=== PATIENT | female | born 1975 | race Caucasian/White ===

== ENCOUNTER 2023-03-04 08:34 | Outpatient (CLI) | payer BC, SELFPAY | END 2023-03-04 08:35 | disposition home or self-care (01) | PROVIDERS: PCP Nurse Practitioner Family; Visit Provider Nurse Practitioner Family | DX: Z00.00 Encounter for general adult medical examination without abnormal findings (principal); Z13.6 Encounter for screening for cardiovascular disorders; Z13.1 Encounter for screening for diabetes mellitus | CPT/HCPCS: 80061; 82947 ==

== ENCOUNTER 2023-06-03 14:15 | Outpatient (CLI) | payer BC, SELFPAY ==
--- NOTE | 2023-06-03 14:40 | CRLHL7_ITS ---
For Patients: As a result of the Cures Act, medical imaging exams and procedure reports are released immediately into your electronic medical record. You may view this report before your referring provider. If you have questions, please contact your health care provider. BILATERAL SCREENING MAMMOGRAM WITH COMPUTER-AIDED DETECTION AND TOMOSYNTHESIS TECHNIQUE: CC and MLO views were obtained. These mammographic images have been obtained using full-field digital technique. These mammographic images were interpreted with the benefit of computer-aided detection. Breast Tomosynthesis was used in this interpretation. COMPARISON FILM: 02/26/22, 10/31/20, 08/24/19. FINDINGS: The breasts are almost entirely fatty IMPRESSION: There is no radiographic evidence for malignancy. ASSESSMENT: BI-RADS Category 1: Negative RECOMMENDATION: Routine screening mammogram in 1 year. A lay language report of this examination will be provided to the patient. Luis Felipe Fonseca M.D. Diagnostic Radiologist [email or web address] JONAH/hector Transcribed: 6:13 p.taya young/Dictated by: Luis Felipe Fonseca MD @ 06/04/2023 12:05:00 PM (Electronically Signed)
== END 2023-06-03 14:16 | disposition home or self-care (01) ==
LOC: MAMMO 14:17
PROVIDERS: PCP Nurse Practitioner Family; Visit Provider Nurse Practitioner Family
DX: Z12.31 Encounter for screening mammogram for malignant neoplasm of breast (principal)
CPT/HCPCS: 77063; 77067

== ENCOUNTER 2024-03-21 08:32 | Outpatient (CLI) | payer BC, SELFPAY | END 2024-03-21 08:33 | disposition home or self-care (01) | PROVIDERS: PCP Nurse Practitioner Family; Visit Provider Nurse Practitioner Family | DX: Z13.220 Encounter for screening for lipoid disorders (principal); Z13.1 Encounter for screening for diabetes mellitus | CPT/HCPCS: 80061; 82947; 87624 ==

== ENCOUNTER 2024-06-15 09:02 | Outpatient (CLI) | payer BC, SELFPAY ==
--- OUTSIDE RECORDS SUMMARY | 2024-06-15 09:05 | XMS_ITS | Clinical Summary ---
Author Organization [facility] Address [address] [facility] [place] [address] Care Team Providers Care Physician Assistant Certified Name Role Phone Unavailable Primary Care Provider Unavailabl e Source Comments You are receiving this document as you are listed as the primary care provider,follow-up provider, or the patient has been referred to you for consultation.This is in compliance with the Medicare and[facility] EHR Incentive Program,which states Providers who transition their patient to another setting of careor provider of care or refers their patient to another provider of care shouldprovide summary care record for each transition of care or referral. [place] Allergies Active Allergy Reactions Criticality Noted Date Comments Other Itching 08/17/2019 Cats Medications Medication Sig Dispensed Refills Start Date End Date Status cetirizine (ZYRTEC) 10 MG tablet Take 10 mg by mouth daily. Active omeprazole (PRILOSEC) 20 MG capsule TAKE 1 CAPSULE BY MOUTH DAILY. TAKE 1 HOUR BEFORE A MEAL 90 Capsule 08/18/2021 Active norgestimate-ethinyl estradiol (TRI FEMYNOR) 0.18/0.215/0.25 MG-35 MCG tablet Take 1 Tablet by mouth daily. 90 Tablet 10/13/2021 Active Active Problems Problem Noted Date Diagnosed Date Cervical cancer screening 07/01/2018 Overview (07/04/2019): CCS Review: History: 2014 NILM HPV OTHER+ 2016 NILM HPV NEGATIVE 2017 NILM HPV NEGATIVE 2018 ASCUS HPV NEGATIVE 2019: NILM HPV neg Plan, per ASCCP guidelines: repeat cotest in 5 years (06/2024) Allergic rhinitis 02/26/2014 Overview (04/28/2017): Allergic rhinitis - sinus congestion Resolved Problems Problem Noted Date Diagnosed Date Resolved Date Contraception 02/26/2014 07/11/2015 Overview (04/28/2017): Contraception - Mirena IUD placed 03/13/2011 replace on 03/2016 Encounter for other general counseling or advice on contraception 03/13/2011 06/20/2018 Overview (04/28/2017): Other general counseling and advice for contraceptive management Papanicolaou smear of cervix with low grade squamous intraepithelial lesion (LGSIL) 05/09/2008 06/20/2018 Overview (04/28/2017): LW Modifier: 04/2008 ; Cervical Squam Lograde Intraep Neoplasia Papanicolaou smear of cervix with atypical squamous cells of undetermined significance (ASC-US) 04/30/2008 06/20/2018 Overview (04/28/2017): LW Modifier: + HPV 2007 ; ASCUS Immunizations Name Administration Dates Next Due HepB Adult (Engerix-B, 20+ y rs, 3 dose series) 12/05/2004,11/26/2003,10/30/2003 Influenza IIV4 (Quadrivalent) 0.5mL (62109) 05/2019,06/16/2018 TDAP (BOOSTRIX) 06/01/2013 Td 07/14/2002 Family History Medical History Relation Name Comments heartburn Mother dysmenorrhea Sister Relation Name Status Comments Mother Sister Social History Tobacco Use Types Packs/Day Years Used Date Smoking Tobacco: Former Cigarettes Q uit: 03/22/2012 Smokeless Tobacco: Never Comments:Smoking History Pac ks/day: Alcohol Use Standard Drinks/Week Comments Yes 6 (1 standard drink = 0.6 oz pur e alcohol) PHQ-2 Answer Date Recorded PHQ-2 Score 0 06/21/2019 Housing Stability Vital Sign Answer Channing e Recorded In the last 12 months, was t here a time when you were not able to pay the mortgage or rent on time? No 08/22/2020 Number of Places Lived in the Last Year Not on f ile 08/22/2020 In the last 12 months, was t here a time when you did not have a steady place to sleep or slept in a custodial (including now)? No 08/22/2020 Sex and Gender Information Value Date Recorded Sex Assigned at Not on file Gender Identity Not on file Sexual Orientation Not on file Last Filed Vital Signs Vital Sign Reading Time Taken Comments Blood Pressure 132/88 06/21/2019 8:29 AM CDT Pulse 78 06/21/2019 8:29 AM CDT Temperature - - Respiratory Rate - - Oxygen Saturation - - Inhaled Oxygen Concentration - - Weight 96.6 kg (213 lb) 06/21/2019 8:29 AM CDT Height 165.1 cm (5' 5) 06/21/2019 8:29 AM CDT Body Mass Index 35.45 06/21/2019 8:29 AM CDT Plan of Treatment Health Maintenance Due Date Last Done Comments Colon Cancer Screening Plan Due 1975 Adult Preventive Visit 06/21/2020 9, 06/20/2018, 05/13/2017 Mammogram 10/31/2021 10/31/2020, 08/06, 06/20/2018, Additional history exists DTaP/Tdap/Td (2 - Tdap) 06/01/2023 06/01/2013, 07/14 COVID-19 Vaccine ( season) 2024 Influenza (#1) 2024 06/19/2020, 06/06, 06/14/2019, Additional history exists Cervical Cancer Screening 06/21/20242018, 06/20/2018, 05/13/2017, Additional history exists Cholesterol 06/21/2024 06/21/2019, 06/07, 05/13/2017, Additional history exists Zoster/Shingles (1 of 2) 2025 HepB Completed 12/05/2004, 11/05, 10/30/2003 HIV Screening (Preventive Services) Completed 05/13/2017, 02/20/2015, 02/26/2014, Additional history exists Hep C Screening (Preventive Services) Completed 05/13/2017, 02/20/2015, 02/26/2014, Additional history exists HepA Aged Out No longer eligi ble based on patient's age to complete this topic Hib Aged Out No longer eligi ble based on patient's age to complete this topic IPV (Polio) Aged Out No longer eligi ble based on patient's age to complete this topic Infant RSV Aged Out No longer eligi ble based on patient's age to complete this topic MCV4 Aged Out No longer eligi ble based on patient's age to complete this topic Pneumococcal Aged Out No longer eligi ble based on patient's age to complete this topic Procedures Procedure Name Priority Date/Time Associated Diagnosis Comments MM MAMMOGRAM SCREENING BILAT W 3D CORTEZ W CAD Routine 10/31/2020 2:07 PM RN LICENSED PRACTICAL Encounter for screening for malignant neoplasm of breast, unspecified screening modality LIPID PANEL & DIRECT LDL (IF NEEDED) Routine 06/21/2019 9:12 AM CDT Well adult exam PAP TEST Routine 06/21/2019 9:04 AM CDT Screening for cervical cancer ASCUS of cervix with negative high risk HPV HIV 1/2 AG/AB 4TH GEN Routine 05/13/2017 8:49 AM CDT Screen for STD (sexually transmitted disease) HEPATITIS C ANTIBODY, WITH REFLEX Routine 05/13/2017 8:49 AM CDT Screen for STD (sexually transmitted disease) from Last 3 Months or Most Recently Relevant to Health Maintenance Results * MM Mammogram Screening Bilat W 3D Cortez W CAD (10/31/2020 2:07 PM RN LICENSED PRACTICAL) Anatomical Region Laterality Modality Breast Bilateral Mammography Impressions 10/31/2020 2:58 PM RN LICENSED PRACTICAL : ACR BI-RADS Category 1: Negative RECOMMENDATION: Follow Up Imaging in 12 months - Bilateral The results and recommendations of this examination will be communicated to the patient. Narrative 10/31/2020 2:58 PM RN LICENSED PRACTICAL MM MAMMOGRAM SCREENING BILAT W 3D CORTEZ W CAD performed on 10/31/20 Compared to: 08/24/2019 MM Mammogram Screening Bilat W 3D Cortez W CAD, 06/20/2018 MM Mammogram Screening Bilat W CAD, and 05/24/2017 MM Mammogram Screening Bilat W CAD ?? FINDINGS: Bilateral screening mammogram was performed with the assistance of Computer-Aided Detection and breast tomosynthesis. The breasts have scattered areas of fibroglandular density. There is no radiographic evidence of malignancy. ?? Radha Selby PA-C RAD NUBIA * Lipid Panel and Direct LDL(If Needed) (06/21/2019 9:12 AM CDT) Cholesterol 185 0 - 199 mg/dL 06/21/2019 12:20 PM CDT [facility] Triglyceride 106 <=149 mg/dL 06/21/2019 12:20 PM T [facility] HDL Cholesterol 60 >=40 mg/dL 9 12:20 PM CDT [facility] LDL, Calculated 104 <130 mg/dL 9 12:20 PM T [facility] Non HDL Chol, Calculated 125 mg/dL 06/21/2019 12:20 PM T [facility] Cholesterol/HDL Ratio 3.1 06/21/2019 12:20 PM T [facility] Hours Fasting 11 06/21/2019 12:20 PM T [facility] Blood Venipuncture / Unknown 06/21/2019 9:12 AM CDT 06/21/2019 9:13 AM CDT Radha Selby PA-C LAB_1 [facility] [address] [place] [address], [facility] [phone] [facility] [address] [place] [phone], [facility] [phone] * PAP Test (06/21/2019 9:04 AM CDT) Case Report Pap ? Case: [id number] ? Authorizing Provider: ??Radha Gomez PA-C ? Collected: ? 06/21/2019 09:04 AM ? Ordering Location: ? [facility] ?? Received: ?06/21/2019 09:39 AM ? First Screen: ?Anne Webb CT (ASCP) ? Specimen: ?Pap Test, Routine, Cervix/Endocervix ? 06/30/2019 11:36 AM CDT [facility] Pap Specimen Adequacy Satisfactory for evaluation, endocervical/renteria sformation zone component present. 06/30/2019 11:36 AM CDT [facility] Pap Interpretation Negative for intraepithelial lesion or malignancy (NILM). 06/30/2019 11:36 AM CDT [facility] Gross Description The specimen is received in SurePath fixative and properly labeled. 1 Pap-stained SurePath slide is prepared. 06/30/2019 11:36 AM CDT [facility] Pap Disclaimer The Pap test is a screening test designed to aid in the detection of cervical cancer and its precursor lesions. It is not a diagnostic procedure and should not be used as the sole means of detecting cervical cancer. Both false-positive and false-negative reports may occur. 06/30/2019 11:36 AM CDT [facility] Embedded Images 9 11:36 AM CDT [facility] Other Specimen Type ENTIRE ENDOCERVIX / Unknown 06/21/2019 9:04 AM CDT 06/21/2019 9:39 AM CDT Comment:LMP: Patient's last menstrual period was 05/25/2019. Radha Selby PA-C LAB PATHOLOGY Performing Organization Address [facility] Co de Phone Number [address] [address], [facility] * HIV 1/2 Ag/Ab 4th Generation (05/13/2017 8:49 AM CDT) HIV-1 p24 Ag and HIV-1/HIV-2 Ab Nonreactive Nonreactive PN SOFT 05/13/2017 8:49 AM CDT 05/13/2017 12:32 PM CDT Narrative PN SOFT - 05/13/2017 1:12 PM CDT Performed at [facility], [address] [place] [address] CLIA number [id number] Radha Selby PA-C LAB_1 Performing Organization Address [facility] de Phone Number PN SOFT [address] [place] [phone] * Hepatitis C Antibody, with Reflex (05/13/2017 8:49 AM CDT) Hepatitis C Antibody Nonreactive Nonreactive PN SOFT 05/13/2017 8:49 AM CDT 05/13/2017 12:32 PM CDT Narrative PN SOFT - 05/13/2017 1:12 PM CDT Performed at [facility], [address] [place] [address] CLIA number [id number] Radha Selby PA-C LAB_1 Performing Organization Address [facility] Co de Phone Number PN [employer] [address] [place] [address] from Last 3 Months or Most Recently Relevant to Health Maintenance Marion Johnson Personal/Famil y Self 1975 [address] [place] [id number] Marion Johnson Personal/Famil y Self 1975 [facility] [id number]
--- OUTSIDE RECORDS SUMMARY | 2024-06-15 09:05 | XMS_ITS | Data Portability ---
Author Organization [facility], [employer] Address [address] [facility] [place] [address] Assessment Encounter Date Assessment Date Assessment LastModified by Organization Details LastModified Time 04/05/2024 04/05/2024 Patient was informed about her diagnosis as detailed down below. At this time she was informed of my recommendation for custom inserts to alleviate her hallux limitus and associated lateral dumping in addition she will start wearing OTC compression socks to alleviate her peripheral venous insufficiency. The patient will be seen back in a few weeks for a recheck. Not available 04/05/2024 13:56:15 04/19/2024 04/19/2024 Patient presents for orthotics apple picker. Discussed instructions and dispensed instruction sheet to patient. Orthotics trimmed to properly fit shoes. Re check in approximately 2 weeks with provider. Please see prior clinician note for original encounter documentation and diagnosis. Not available 04/22/2024 11:56:41 Plan of Treatment Reminders Order Date Submit Date Provider Last Modified By Organization Details Last Modified Time Details Appointments None record ed. Lab None record ed. Referral None record ed. Procedures None record ed. Surgeries None record ed. Imaging XR, foot, 3 or more view 024 04/05/20 24 [facility], [address] [place] [address], [phone], 09:36:35 Medication Orders None record ed. Patient TargetsNo targets recorded. Patient InstructionsNo instructions recorded. Reason for Referral None Reported. Results Created Date Observation Date Name Description Value Unit Range Abnormal Flag Note LastModifiedBy Organization Detail LastModifiedTime 04/05/20 24 XR, foot, 3 or more view No observ ation record ed. [email or web address] [address] [place] [address], [phone], 04/05/2024 13:54:41 Result Notes None recorded. Procedures Surgical History None recorded. Imaging Results Imaging Date Name Status LastModified by Organiz ation Details LastModified Time 04/05/2024 XR, foot, 3 or more view completed [address] [place] [address], [phone], 04/05/2024 13:54:41 Procedure Notes None recorded. Medical Equipment None Reported. Allergies No known drug allergies Medications Name Sig Start Date Stop Date Status Note LastModified by Organization Details LastModified Time norgestimat e-ethinyl estradiol 0.18 mg/0.215mg/ 0.25mg-35 mcg(28)tabl et TAKE 1 TABLET BY MOUTH EVERY DAY FOR 90 DAYS active Not Available Not Available No t Available Vitals Date Recorded Body height Body mass index (BMI) Body weight Provider Name and Address Organization Details Last Updated DateTime 04/05/2024 162.56 cm 36.7 kg/m2 42930.77 g Jessica [facility] - [facility] 04/05/2024 11:00:36 Social History None recorded. Functional Status None recorded. Mental Status None recorded. Family History Nothing Reported. Medical History No medical history recorded. Gynecological HistoryNo gynecological history recorded. Obstetrics History GPAL:G 0 P 0 0 0 0 Past Encounters Encounter ID Performer Location Encounter Start Date Encounter Closed Date Diagnosis/Indication Diagnosis SNOMED-CT Code Diagnosis ICD10 Code [id number] Pedro Greenwood DPM [facility] [address] [place] [phone] 04/05/2024 10:58:52 04/06/2024 09:36:34 Acquired hallux limitus of right great toe 6729629517 150857 M20.5X1 Acquired h allux limitus of left great toe 0018511872 825872 M20.5X2 Peripheral venous insufficiency 38845707 I87.2 [id number] Pedro Greenwood DPM [facility] [address] [place] [phone] 04/19/2024 16:25:51 04/23/2024 16:00:53 Pain in left foot [id number] 98879 M79.672 Pain in right foot 59498 55621 25323 M79.671 Health Concerns Section Related Observation LastModified by Organization Detai ls LastModified Time None Recorded Concern Status LastModified by Organization Details LastModified Time None Recorded Advance Directives Directive None Recorded Payers Encounter Date Sequence Insurance Name Policy Number Policy Correia Covered Member ID Correia Member ID Guarantor Name 04/05/2024 1 [facility] [id number] Marion Johnson [id number] Marion Johnson 04/19/2024 1 [facility] [id number] Marion Johnson [id number] Marion Johnson Notes Date Note Type Note Provider Name and Address Organization Details Recorded Time 04/05/2024 text/html HPI Notes: Allan pnadya is a 48 year old female new patient who presents today as a referral for right sided heel and outside of ankle pain. The patient mentions that she has had a history of this in the past that was successfully treated with inserts from [facility], however despite numerous sets of inserts the patient is having continued pain and presents today for further options. Pedro Greenwood, DARRYL [address] [place], [phone], [facility] - [facility] 04/05/2024 13:56:22 OBGyn Episode No OBEpisode recorded.
--- OUTSIDE RECORDS SUMMARY | 2024-06-15 09:05 | XMS_ITS | Clinical Summary ---
Author Organization [facility] Address [place], [place] [address] Care Team Providers Care Funeral Pre Arrangement Counselor Name Role Phone Radha Gomez Primary Care Provider Allergies Active Allergy Reactions Criticality Noted Date Comments Cats (Fur, Dander, Saliva) Itching 9 Medications Medication Sig Dispensed Refills Start Date End Date Status cetirizine (ZYRTEC) 10 mg tablet 02/03/2015 Active omeprazole (PRILOSEC) 20 mg Delayed-Release capsule 01/01/2015 Active norgestimate-ethinyl estradiol (TRI-ESTARYLLA) 0.18/0.215/0.25 mg-35 mcg (28) tablet Take by mouth. 05/13/2017 Active Active Problems No known active problems Immunizations Name Administration Dates Next Due Hepatitis B (Adult) 12/05/2004,11/26/2003,2003 Influenza Virus, Unspecified 06/20/2010 Influenza, IIV3 (Age 6-35 mos) 06/25/2009 Influenza, IIV3 (Age >=3 years) 06/14/2014,06/01 Influenza, Whole Virus 06/17/2017 MMR 01/02/1993 Td (Age >=7 Years) 07/14/2002 Tdap 06/01/2013 Family History Medical History Relation Name Comments Hyperlipidemia Father Cancer Maternal Grandfather Hypertension Mother Diabetes Paternal Grandfather Hypertension Sister 1 Relation Name Status Comments Father Alive Maternal Grandfather Mother Alive Paternal Grandfather Sister 1 Alive Sister 2 Alive Sister 3 Alive Social History Tobacco Use Types Packs/Day Years Used Date Smoking Tobacco: Former Cigarettes Q uit: 03/06/2012 Smokeless Tobacco: Never Tobacco Cessation:Counseling Given: Yes Alcohol Use Standard Drinks/Week Comments Yes 4 (1 standard drink = 0.6 oz pur e alcohol) 3 times per week Social Connections Answer Date Recorded Frequency of Communication with Friends and Fami ly Not on file 09/06/2021 Financial Resource Strain Answer Date R ecorded Difficulty of Paying Living Expenses Not on file 09/06/2021 Difficulty of Paying Living Expenses Not on file 09/06/2021 Sex and Gender Information Value Date Recorded Sex Assigned at Not on file Gender Identity Not on file Sexual Orientation Not on file Obstetrics History Para Term AB IAB SAB Ectopic Multiple Livin g Live Births 0 0 0 0 0 0 0 0 0 0 Last Filed Vital Signs Vital Sign Reading Time Taken Comments Blood Pressure 125/82 11/02/2019 2:09 PM [employer] SUPERINTENDENT Pulse 76 11/02/2019 2:09 PM [employer] SUPERINT[employer]ENT Temperature 36.8 ??C (98.2 ??F) 11/02/2019 2:09 PM CS T Respiratory Rate 16 08/17/2019 9:33 AM [employer] SUPER[employer]ENDENT Oxygen Saturation 99% 11/02/2019 2:09 PM [employer] SUPERINTENDENT Inhaled Oxygen Concentration - - Weight 98.1 kg (216 lb 3.2 oz) 11/02/2019 2:09 P M [employer] SUPERINTENDENT Height 164.2 cm (5' 4.65) 11/02/2019 2:09 PM CS T Body Mass Index 36.37 11/02/2019 2:09 PM [employer] SUPERINTENDENT Plan of Treatment Health Maintenance Due Date Last Done Comments HIV for age 15-65 1990 Hepatitis C screening for age 18-79 1993 Pap test for age 21-65 04/06/2014 1 (Completed outside of [facility]), 04/17/2008, 04/17/2008 Depression screening for age 12+ 11/04/2018 11/04/2017 Colonoscopy through age 75 2020 Lipids for age 45-75 2020 Mammogram for age 45-75 2020 BMI (ht and wt on same day) for age 18+ 11/02/2020 11/02/2019, 08/17/2019, 11/04/2017 Tetanus booster 06/01/2023 06/01/2013, 07/14/2002 COVID-19 vaccine series ( season) 2024 Influenza for age 9-49 05/07/2024 7, 06/14/2014, 06/01/2013, Additional history exists Tdap Completed 06/01/2013 Pneumococcal series for age 6-64 Aged Out No longer eligible based on patient's age to complete this topic Procedures Procedure Name Priority Date/Time Associated Diagnosis Comments COMBAT CONTROL MANAGER THIN PREP PAP DIAGNOSTIC IMAGED Routine 04/17/2008 8:58 AM CDT ASCUS Favor Dysplasia from Last 3 Months or Most Recently Relevant to Health Maintenance Results * (ABNORMAL) COMBAT CONTROL MANAGER THIN PREP PAP DIAGNOSTIC IMAGED (04/17/2008 8:58 AM CDT) CYTOLOGY ??CYTOPATHOLOGY REPORT ??[facility] ?? Status: Final Report ? [id number] ?? CLINICAL INFORMATION ?LMP ? : 03-20-08 ?Previous Pap Date ? : 03-22-08 ?Previous PAP Dx ? : Atypical squamous cells of undetermined ?significance ?Previous [place]/bx date : None ?Previous Colposcopy/Bx: None ?Hormone Usage ? : BCP/OCP/Patch/Ring ?Menstrual Status ?: Regular Periods ?Appearance of Cervix ??: Not given ?[place]/Bx done today ?: No ?HPV Request ? : HPV testing ordered. See Separate Report. ?? SPECIMEN SOURCE ?: Cervical/vaginal ThinPrep Vial, diagnostic ?? SPECIMEN ADEQUACY ?: Satisfactory for evaluation Endocervical ?component present. ? INTERPRETATION/RES ULT: ?Negative for intraepithelial lesion or malignancy. ?Organisms ?Fungal organisms morphologically consistent with Gissel species ? Cytology 1st Screener : ??kmh ?? Signed by: ? km ?? This specimen was screened by the FDA approved ThinPrep Imaging ?? System and manually reviewed. ?? NOTE: The Pap test is a screening technique, not a diagnostic ?? procedure. It is used primarily to screen for squamous cancers and ?? precursor lesions. Published studies have shown that it is subject to ?? both false negative and false positive results. The pap test should ?? not be used as the sole means to diagnose or exclude pre-malignant and ?? malignant lesions. ?? COLLECTED: 04/17/08 ?? ACCESSIONED: 04/17/08 ?? SIGNED: 04/24/08 [facility] PAP [place] CODE [facility] Cervical (Cervical) 04/17/2008 8:58 AM CDT 04/17/2008 8:45 AM CDT Vincent Singer MD PATHOLOGY/CYTOL OGY [facility] [place] ZIP [address] [address] from Last 3 Months or Most Recently Relevant to Health Maintenance Care Teams Funeral Pre Arrangement Counselor Relationship Specialty Start Date End Date Radha Gomez PA PCP - General Physician Calender Feeder 02/09/14
--- OUTSIDE RECORDS SUMMARY | 2024-06-15 09:05 | XMS_ITS | Continuity of Care Document ---
Author Organization [place] - [facility] [place] [facility] Address [address] [place] [address] [address] [place] [address] Assessment Encounter Date Assessment Date Assessment LastModified by Organization Details LastModified Time 04/19/2024 04/19/2024 Patient presents for orthotics peanut picker. Discussed instructions and dispensed instruction sheet to patient. Orthotics trimmed to properly fit shoes. Re check in approximately 2 weeks with provider. Please see prior clinician note for original encounter documentation and diagnosis. [email or web address] Not available 04/22/2024 11:56:41 Plan of Treatment Reminders Order Date Submit Date Provider Last Modified By Organization Details Last Modified Time Details Appointments None record ed. Lab None record ed. Referral None record ed. Procedures None record ed. Surgeries None record ed. Imaging None record ed. Medication Orders None record ed. Patient TargetsNo targets recorded. Patient InstructionsNo instructions recorded. Reason for Referral None Reported. Results Created Date Observation Date Name Description Value Unit Range Abnormal Flag Note LastModifiedBy Organization Detail LastModifiedTime 04/05/20 24 XR, foot, 3 or more view No observ ation record ed. [email or web address] [facility] [address] [place] [address] , [place], [address], 04/05/2024 13:54:41 Result Notes None recorded. Medical Equipment None Reported. Allergies No known drug allergies Medications Name Sig Start Date Stop Date Status Note LastModified by Organization Details LastModified Time norgestimat e-ethinyl estradiol 0.18 mg/0.215mg/ 0.25mg-35 mcg(28)tabl et TAKE 1 TABLET BY MOUTH EVERY DAY FOR 90 DAYS active Not Available Not Available No t Available Vitals None Recorded Social History None recorded. Functional Status None recorded. Mental Status None recorded. Family History Nothing Reported. Medical History No medical history recorded. Gynecological HistoryNo gynecological history recorded. Obstetrics History GPAL:G 0 P 0 0 0 0 Past Encounters Encounter ID Performer Location Encounter Start Date Encounter Closed Date Diagnosis/Indication Diagnosis SNOMED-CT Code Diagnosis ICD10 Code [id number] Pedro Greenwood DPM [facility] [address] [place] [phone] 04/05/2024 10:58:52 04/06/2024 09:36:34 Acquired hallux limitus of right great toe 5586792578 967165 M20.5X1 Acquired h allux limitus of left great toe 3701214946 974991 M20.5X2 Peripheral venous insufficiency 99803469 I87.2 [id number] Pedro Greenwood DPM [facility] [address] [place] [phone] 04/19/2024 16:25:51 04/23/2024 16:00:53 Pain in left foot 2155669655 88098 M79.672 Pain in right foot 35373 55503 79850 M79.671 Health Concerns Section Related Observation LastModified by Organization Detai ls LastModified Time None Recorded Concern Status LastModified by Organization Details LastModified Time None Recorded Payers Encounter Date Sequence Insurance Name Policy Number Policy Correia Covered Member ID Correia Member ID Guarantor Name 04/19/2024 1 [facility] [id number] Marion Johnson [id number] Marion Johnson OBGyn Episode No OBEpisode recorded.
--- OUTSIDE RECORDS SUMMARY | 2024-06-15 09:06 | XMS_ITS | Continuity of Care Document ---
Author Organization [place] - [facility] [place] [facility] Address [address] [place] [phone] Assessment Encounter Date Assessment Date Assessment LastModified [...] in a few weeks for a recheck. [email or web address] Not available 04/05/2024 13:56:15 Plan of Treatment Reminders Order Date Submit Date Provider Last Modified By Organization Details Last Modified Time Details Appointments None record ed. Lab None record ed. Referral None record ed. Procedures None record ed. Surgeries None record ed. Imaging XR, foot, 3 or more view 024 04/05/20 24 [facility], [address] [place] [address], [phone], 09:36:35 Medication Orders None record ed. Patient TargetsNo targets recorded. Patient InstructionsNo instructions recorded. Reason for Referral None Reported. Results Created Date Observation Date Name Description Value Unit Range Abnormal Flag Note LastModifiedBy Organization Detail LastModifiedTime 04/05/20 24 XR, foot, 3 or more view No observ ation record ed. [email or web address] [facility] [address] [place] [address], [phone], 04/05/2024 13:54:41 Result Notes None recorded. Procedures Surgical History None recorded. Imaging Results Imaging Date Name Status LastModified by Organiz ation Details LastModified Time 04/05/2024 XR, foot, 3 or more view completed [email or web address] [facility] [address] [place] [address] , [place], [address], 04/05/2024 13:54:41 Procedure Notes None recorded. Medical [...] Updated DateTime 04/05/2024 162.56 cm 36.7 kg/m2 85778.77 g Jessica [facility] - [facility] [...] Diagnosis/Indication Diagnosis SNOMED-CT Code Diagnosis ICD10 Code [id number] Pedro Greenwood DPM [facility] [address] [place] [address] [address] [place] [address] 04/05/2024 10:58:52 04/06/2024 09:36:34 Acquired hallux limitus of right great toe [id number] 439708 M20.5X1 Acquired h allux limitus of left great toe 6895205878 628992 M20.5X2 Peripheral venous insufficiency 20077039 I87.2 Health Concerns Section Related Observation LastModified by Organization Detai ls LastModified Time None Recorded Concern Status LastModified by Organization Details LastModified Time None Recorded Payers Encounter Date Sequence Insurance Name Policy Number Policy Correia Covered Member ID Correia Member ID Guarantor Name 04/05/2024 1 [facility] [id number] Marion Johnson [id number] Marion Johnson Notes Date Note Type Note Provider Name and Address Organization Details Recorded Time 04/05/2024 text/html HPI Notes: Allan pandya is a 48 year old female new [...] for further options. Pedro Greenwood, DARRYL [address] [place], [address], [facility] - [facility] 04/05/2024 13:56:22 OBGyn Episode No OBEpisode recorded.
--- NOTE | 2024-06-15 09:15 | CRLHL7_ITS ---
For Patients: As a result of the Century Cures Act, medical imaging exams and procedure reports are released immediately into your electronic medical record. You may view this report before your referring provider. If you have questions, please contact your health care provider. BILATERAL SCREENING MAMMOGRAM WITH COMPUTER-AIDED DETECTION AND TOMOSYNTHESIS TECHNIQUE: CC and MLO views were obtained. These mammographic images have been obtained using full-field digital technique. These mammographic images were interpreted with the benefit of computer-aided detection. Breast Tomosynthesis was used in this interpretation. COMPARISON FILM: 06/03/23, 02/26/22, 10/31/20. FINDINGS: There are scattered areas of fibroglandular density. IMPRESSION: There is no radiographic evidence for malignancy. ASSESSMENT: BI-RADS Category 1: Negative RECOMMENDATION: Routine screening mammogram in 1 year. A lay language report of this examination will be provided to the patient. Luis Felipe Fonseca M.D. Diagnostic Radiologist [email or web address] SP/Dictated by: Luis Felipe Fonseca MD @ 06/15/2024 9:41:00 AM (Electronically Signed)
== END 2024-06-15 09:03 | disposition home or self-care (01) ==
LOC: MAMMO 09:03
PROVIDERS: PCP Nurse Practitioner Family; Visit Provider Nurse Practitioner Family
DX: Z12.31 Encounter for screening mammogram for malignant neoplasm of breast (principal)
CPT/HCPCS: 77063; 77067

== ENCOUNTER 2025-04-12 08:23 | Outpatient (CLI) | payer BC, SELFPAY ==
[2025-04-14 00:11] LABS: HPV Source Vaginal
[2025-04-14 19:47] LABS: HPV Genotype 16 by TMA Not Detected; HPV Genotype 18/45 by TMA Not Detected
[2025-04-17 12:31] LABS: Pap Test Digital Imaging Done
== END 2025-04-12 08:24 | disposition home or self-care (01) ==
PROVIDERS: PCP Nurse Practitioner Family; Visit Provider Nurse Practitioner Family
DX: Z01.419 Encounter for gynecological examination (general) (routine) without abnormal findings (principal); Z13.6 Encounter for screening for cardiovascular disorders; Z13.1 Encounter for screening for diabetes mellitus
CPT/HCPCS: 80061; 82947; 87624; 87625; 88141; 88142; 88175